=== PATIENT | male | born 1945 | race African-American/Black ===

== ENCOUNTER 2025-07-05 10:21 | Inpatient (IN) | payer OTHER, MEDICARE ==
[2025-07-05] VITALS (14 sets, daily range): BP systolic 149–185; BP diastolic 68–86; PULSE 84–102; RESP 18–25; TEMP 36.3918–36.7516; O2SAT 98–100
[~2025-07-05] VITALS: Ht 170.2 cm; Wt 81.6 kg
[2025-07-05 12:15] LABS: BASOPHILS % 0.5 % (0.0-2.0); EOSINOPHILS % 4.6 % (0.0-5.0); HEMATOCRIT. 22.2 % (42.0-52.0); HEMOGLOBIN. 7.2 g/dL (14.0-18.0); LYMPHOCYTES % 16.2 % (20.0-50.0); MEAN PLATELET VOLUME 7.7 fl (7.4-10.4); MONOCYTES % 11.0 % (2.0-8.0); NEUTROPHILS % 67.7 % (40.0-76.0); PLATELET 209 x1000/uL (130-400); RED BLOOD CELL COUNT 2.44 mill/uL (4.7-6.1); RED CELL DISTRIBUTION WIDTH 15.0 % (11.6-14.6)
[2025-07-05 12:28] LABS: TROPONIN I HIGH SENSITIVITY 35 ng/L (3.0-53)
[2025-07-05 12:32] LABS: ASPARTATE AMINOTRANSFERASE 10 IU/L (<34); BILIRUBIN DIRECT < 0.1 mg/dL (<=3.0); BILIRUBIN TOTAL < 0.2 mg/dL (0.1-1.0); PROTEIN TOTAL 6.7 g/dL (6.0-8.3); UREA NITROGEN BLOOD 73 mg/dL (9-23)
[2025-07-05 12:39] LABS: CREATININE 13.2 mg/dL (0.6-1.3)
[2025-07-05] MEDS ORDERED: SODIUM BICARBONATE 8.4% 50MEQ/50ML VIAL IV ONE (13:00)
[2025-07-05] MEDS ORDERED: ALBUTEROL (0.083%) 2.5MG/3ML NEB HHN ONE (13:00)
[2025-07-05] MEDS: SODIUM BICARBONATE 8.4% 50MEQ/50ML SYR IV SCH (13:35)
[2025-07-05] MEDS: DEXTROSE 50% WATER 50ML SYRINGE IV ONE (13:35)
[2025-07-05] MEDS: CALCIUM GLUCONATE 100MG/ML 10ML VIAL IV ONE (13:36)
[2025-07-05] MEDS: INSULIN REGULAR (HUMULIN R) 1000UNITS/10ML VIAL IV ONE (13:37)
[2025-07-05] MEDS ORDERED: ONDANSETRON HCL 4MG/2ML INJ IV PRN (14:30)
[2025-07-05] MEDS ORDERED: ACETAMINOPHEN 650MG/20.3ML UDC GT PRN (14:30)
[2025-07-05] MEDS ORDERED: IPRATROPIUM/ALBUTEROL 0.5-3(2.5)MG/3ML NEB HHN PRN (14:30)
[2025-07-05] MEDS ORDERED: DEXTROSE 50% WATER 50ML SYRINGE IV PRN (14:45)
[2025-07-05 15:56] LABS: GLUCOSE URINE 1+ (NEGATIVE); KETONES URINE NEGATIVE (NEGATIVE); LEUKOCYTE ESTERASE URINE NEGATIVE (NEGATIVE); NITRITE URINE NEGATIVE (NEGATIVE); OCCULT BLOOD URINE TRACE (NEGATIVE); PH URINE 5.5 (4.5-8.0); PROTEIN URINE 3+ (NEGATIVE); SPECIFIC GRAVITY URINE 1.012 (1.005-1.030); UROBILINOGEN URINE 0.2 E.U./dL (0.2-1.0)
[2025-07-05] MEDS: FUROSEMIDE 40MG/4ML VIAL IV SCH (16:38)
[2025-07-05] MEDS: PIPERACILLIN/TAZO 3.375G/50ML 50 ML IV SCH (16:38)
[2025-07-05] MEDS: FERROUS SULFATE 300MG/5ML UDC GT SCH (16:38)
[2025-07-05 16:53] LABS: *AMPHETAMINES SCREEN URINE NEGATIVE (NEGATIVE); *BARBITURATES SCREEN URINE NEGATIVE (NEGATIVE); *BENZODIAZEPINES SCREEN URINE NEGATIVE (NEGATIVE); *COCAINE SCREEN URINE NEGATIVE (NEGATIVE); CANNABINOID URINE SCREEN NEGATIVE (NEGATIVE); ECSTASY MDMA SCREEN URINE NEGATIVE (NEGATIVE); METHADONE URINE SCREEN NEGATIVE (NEGATIVE); OPIATES URINE SCREEN NEGATIVE (NEGATIVE); PHENCYCLIDINE URINE SCREEN NEGATIVE (NEGATIVE)
[2025-07-05 18:10] LABS: CLARITY URINE SL HAZY (CLEAR); COLOR URINE STRAW (YELLOW)
[2025-07-05 18:12] LABS: BACTERIA URINE NONE SEEN; RBC URINE NONE SEEN /hpf (0-2); SQUAMOUS EPITHELIAL CELL URINE 1+ /lpf (RARE/1+); WBC URINE 0-2 /hpf (0-2)
[2025-07-05 18:13] LABS: MUCUS URINE TRACE /lpf (NONE/TRACE)
[2025-07-05] MEDS ORDERED: PNEUMOCOCCAL 20-VAL CONJ-DIP CRM 0.5ML IM ONE (19:15)
[2025-07-05] MEDS ORDERED: INFLUENZA VACCINE 05/PF 0.5 ML SYRINGE IM ONE (19:15)
[2025-07-05] MEDS: PANTOPRAZOLE SODIUM 40 MG/VIAL IV SCH (20:37)
[2025-07-05 21:56] LABS: INR 1.0
[2025-07-05 22:00] LABS: PHOSPHORUS 3.9 mg/dL (2.5-4.9)
[2025-07-05] MEDS: BLOOD SUGAR DIAGNOSTIC STRIP TEST SCH (22:00)
[2025-07-05] MEDS ORDERED: CYCLOBENZAPRINE 10MG TABLET PO SCH (22:00)
[2025-07-05 22:39] LABS: HEPATITIS A AB IGM NEGATIVE (Negative); HEPATITIS B CORE AB IGM NEGATIVE (Negative); HEPATITIS C AB NON REACTIVE (Neg) (Negative)
[2025-07-05] MEDS: INSULIN LISPRO 100 UNITS/ML SUBCUT SCH (22:44)
[2025-07-05] MEDS: CYCLOBENZAPRINE 10MG TABLET PO SCH (22:47)
[2025-07-06] VITALS (12 sets, daily range): BP systolic 131–179; BP diastolic 68–113; PULSE 78–92; RESP 17–23; TEMP 36.44736–36.7; O2SAT 94–100
[2025-07-06 00:32] LABS: TROPONIN I HIGH SENSITIVITY 27 ng/L (3.0-53)
[2025-07-06 00:33] LABS: UREA NITROGEN BLOOD 44.0 mg/dL (9-23)
[2025-07-06 00:45] LABS: CREATININE 8.3 mg/dL (0.6-1.3)
[2025-07-06] MEDS: CLONIDINE 0.1MG TABLET PO PRN (01:15)
[2025-07-06] MEDS: SODIUM CHLORIDE 0.9% 1,000 ML IV SCH (05:27)
[2025-07-06 06:50] LABS: CREATINE KINASE MB FRACTION 3.3 ng/mL (0.5-3.6); TRIGLYCERIDE 67.0 mg/dL (0-150); TROPONIN I HIGH SENSITIVITY 34 ng/L (3.0-53)
[2025-07-06 06:51] LABS: LDL CHOLESTEROL 92.0 mg/dL (5-100)
[2025-07-06 06:54] LABS: T4 FREE 1.17 ng/dL (0.89-1.76)
[2025-07-06] MEDS: SEVELAMER CARBONATE 800 MG TABLET PO SCH (10:07)
[2025-07-06] MEDS: FOLIC ACID/VITAMIN B COMP W-C TABLET PO SCH (10:07)
[2025-07-06] MEDS: AMLODIPINE 10MG TABLET PO SCH (10:08)
[2025-07-06] MEDS: CALCITRIOL 0.25MCG CAPSULE PO SCH (10:08)
[2025-07-06] MEDS ORDERED: HYDRALAZINE HCL 25MG TABLET PO SCH (14:00)
[2025-07-06] MEDS: MANNITOL 12.5G (25%) VIAL 50ML IV SCH (14:04)
[2025-07-06] MEDS: MAGNESIUM 1 G PREMIX 100 ML IV NR (14:04)
== END 2025-07-06 16:53 | disposition short-term general hospital (02) | DRG 640 ==
LOC: ER 10:21 → EDBEDREQ 11:11 → 5EST 13:40 → EDBEDREQ 13:43 → EDBEDREQTM 13:43 → EDBEDREQSVC 13:43
PROVIDERS: ADMIT Hospitalist; ATTEND Hospitalist
PROC: 02HV33Z Insertion of Infusion Device into Superior Vena Cava, Percutaneous Approach (ICD-10-PCS; principal; 2025-07-05)
PROC: 5A1D70Z Performance of Urinary Filtration, Intermittent, Less than 6 Hours Per Day (ICD-10-PCS; 2025-07-05)
PROC: B548ZZA Ultrasonography of Superior Vena Cava, Guidance (ICD-10-PCS; 2025-07-05)
PROC: 5A1D70Z Performance of Urinary Filtration, Intermittent, Less than 6 Hours Per Day (ICD-10-PCS; 2025-07-06)
DX: E87.5 Hyperkalemia (principal); J18.1 Lobar pneumonia, unspecified organism; N18.6 End stage renal disease; J96.00 Acute respiratory failure, unspecified whether with hypoxia or hypercapnia; I12.0 Hypertensive chronic kidney disease with stage 5 chronic kidney disease or end stage renal disease; E87.20 Acidosis, unspecified; E83.39 Other disorders of phosphorus metabolism; N17.9 Acute kidney failure, unspecified; Z99.2 Dependence on renal dialysis; D63.1 Anemia in chronic kidney disease; I35.0 Nonrheumatic aortic (valve) stenosis; E11.22 Type 2 diabetes mellitus with diabetic chronic kidney disease; G25.81 Restless legs syndrome; J45.909 Unspecified asthma, uncomplicated; N25.81 Secondary hyperparathyroidism of renal origin; N28.89 Other specified disorders of kidney and ureter; E78.5 Hyperlipidemia, unspecified; E87.70 Fluid overload, unspecified; R94.39 Abnormal result of other cardiovascular function study; M10.9 Gout, unspecified; E83.42 Hypomagnesemia; M89.8X9 Other specified disorders of bone, unspecified site; Z85.46 Personal history of malignant neoplasm of prostate; Z90.5 Acquired absence of kidney; Z79.4 Long term (current) use of insulin; Z79.899 Other long term (current) drug therapy; Z82.49 Family history of ischemic heart disease and other diseases of the circulatory system; Z83.3 Family history of diabetes mellitus
CPT/HCPCS: 36415; 36556; 71045; 77001; 80048; 80061; 80076; 80305; 81003; 82553; 82962; 83036; 83540; 83550; 83735; 83880; 83935; 83970; 84100; 84145; 84439; 84443; 84484; 84550; 85014; 85018; 85025; 86705; 86709; 86850; 86900; 86920; 87340; 90935; 93005; 93970; 96374; 96375; 99291; C1752; J0612; J1815; J1938; J2151; J2470; J2543; J3475; J3490; J7030